=== PATIENT | female | born 1955 | race Caucasian/White ===

== ENCOUNTER → 2017-08-17 | Outpatient (CLI) | payer BC ==
[~2017-08-17] MED LIST: ASP81; ATR10 PO; CIP500 PO; CYCL10TA29 PO; HYDR12.558 PO; HYDROCHLORIZIDE PO; LISI-349 PO; LOM PO; LOR5/325 PO; METO25TA91 PO; ONDA4TAB PO; TRAM-420 PO
== END ==
LOC: LAB 08:39
PROVIDERS: ATTEND Family Medicine
DX: I10 Essential (primary) hypertension (principal); E78.5 Hyperlipidemia, unspecified; R73.01 Impaired fasting glucose
CPT/HCPCS: 36415; 82040; 82247; 82310; 82374; 82435; 82465; 82565; 82947; 83036; 83718; 84075; 84132; 84155; 84295; 84450; 84460; 84478; 84520

== ENCOUNTER → 2017-10-22 | Outpatient (CLI) | payer BC ==
--- NOTE | 2017-10-22 14:27 | RADIOLOGY IMAGING REPORT ---
[place] [facility] [place]IENT NAME: Kusum Khan : 1955 MR: [id number] V: [id number] EXAM DATE: ORDERING PHYSICIAN: JOSE DE JESUS NOGUERA TECHNOLOGIST: Location: [facility] Patient: Kusum Khan : 1955 Visit/Account:[id number] Date of Sevice: 10/22/2017 Abdominal ultrasound Indication: Right upper quadrant pain Comparison: CT abdomen and pelvis August 02, 2011 Technique: Multiple grayscale, color and Doppler sonographic images were obtained for an ultrasound o f the right upper quadrant. Findings: Liver is normal in size, contour, and echotexture and measures 14.3 cm in length. There is normal hep atopedal portal venous flow. Gallbladder wall thickness is 1 mm with calculi within the gallbladder lumen. Positive sonographic M urphy's sign reported by the technologist. No pericholecystic fluid. Common duct measures 5 mm in maximum diameter with no evidence of shadowing stone. Imaged portions of the pancreas are unremarkable. Abdominal aorta and IVC are patent and unremarkable. The right kidney is normal in size, contour, and echotexture measuring 10.9 cm x 4.6 cm x 5.4 cm. IMPRESSION: 1. Cholelithiasis in the background setting of a positive Ken's sign. There is no sonographic josie dence of acute cholecystitis. Report Dictated By: Lars Baig DO at 10/22/2017 2:19 PM Report E-Signed By: Lars Baig DO at 10/22/2017 2:24 PM WSN:[email or web address]
== END ==
LOC: US 12:44
PROVIDERS: ATTEND Family Medicine
DX: K80.20 Calculus of gallbladder without cholecystitis without obstruction (principal); R19.4 Change in bowel habit; R19.7 Diarrhea, unspecified; R19.8 Other specified symptoms and signs involving the digestive system and abdomen
CPT/HCPCS: 36415; 76705; 82040; 82247; 82310; 82374; 82435; 82565; 82947; 84075; 84132; 84155; 84295; 84450; 84460; 84520; 85027

== ENCOUNTER 2017-10-25 01:12 | Day surgery (SDC) | payer BC ==
--- NOTE | 2017-10-24 15:12 | HISTORY AND PHYSICAL ---
DATE OF ADMISSION: October 25, 2017 CHIEF COMPLAINT Right upper quadrant pain. HISTORY OF PRESENT ILLNESS This is a 62-year-old female with a history of hypertension who presents with a one week history of right upper quadrant pain with radiation through to the back. The pain started after eating. It has been pretty steady since. She has had no fever. She has had some nausea. No urinary complaints. She does have some loose stools. Ultrasound revealed cholelithiasis. Chemistry panel showed no elevation of the LFTs. PAST SURGICAL HISTORY * Colonoscopy. * Laser eye operation. * Total hysterectomy. ALLERGIES 1. BIAXIN. 2. PENICILLIN. CURRENT MEDICATIONS * Atorvastatin 10 mg. * Fenofibrate one daily. * Lisinopril/hydrochlorothiazide 20/12.5 daily. REVIEW OF SYSTEMS Significant for the history of hypertension. No cardiac disease, pulmonary disease, liver or kidney disease. No diabetes, no deep venous thrombosis. PHYSICAL EXAMINATION GENERAL: A 62-year-old female in no acute distress. LUNGS: Clear. HEART: Regular rate and rhythm. ABDOMEN: Shows mild tenderness to deep palpation in the right upper quadrant. No palpable masses. IMPRESSION * Cholelithiasis. * Cholecystitis. PLAN Laparoscopic cholecystectomy with intraoperative cholangiogram. We discussed the procedure, complications, recovery time. She seems to understand and wishes to proceed. CHRISTIAN
[~2017-10-25] VITALS: Ht 160 cm; Wt 95.7 kg
[2017-10-25] MEDS: NORMOSOL R SOLN(*) 1000 ML BAG 1,000 ML IV PRN ×2 (07:06→10:50)
[2017-10-25 07:10] VITALS: BP 114/71
--- NOTE | 2017-10-25 07:19 | Post Operative Progress Note ---
Post Operative Progress Note Date: Oct 25, 2017 Surgeon: sigifredo Anesthesia: dr gilbert Pre-Op Diagnosis: cholelithiasis and cholecystitis Post-Op Diagnosis: same Procedure(s): lap noelle with KRISTIE Perry MD Oct 25, 2017 07:19
--- NOTE | 2017-10-25 07:21 | Short(Outpt) Discharge Summary ---
Discharge Summary Reason for Hosp/Final Diag: (1) Cholelithiasis and acute cholecystitis without obstruction Hospital Course & Plan: lap noelle with gram Departure Discharge to: Home Discharge Instructions Home Meds Reported Medications Hydrochlorothiazide (Hydrochlorothiazide) 12.5 Mg Capsule, 12.5 MG PO QDAY 08/10/11 Atorvastatin (Lipitor) 10 Mg Tab, 10 MG PO QHS 08/09/11 Lisinopril (Prinivil) 20 Mg Tablet, 20 MG PO QDAY 08/09/11 Discontinued Scripts Ondansetron (ZOFRAN ODT) 4 Mg Tab.rapdis, 4 MG PO Q6H for PAIN, #20 TAB.IVONNE Prov:DAYSI KEENAN DO 01/11/16 Hydrocodone Bit/Acetaminophen (HYDROCODON-ACETAMINOPHEN 5-325) 1 Each Tablet, 1 EACH PO Q4-6H for PAIN, #20 TAB Prov:DAYSI KEENAN DO 01/11/16 Tramadol Hcl (TRAMADOL HCL) 50 Mg Tablet, 50-100 MG PO Q4-6H for PAIN, #40 TAB Prov:DAYSI KEENAN DO 01/11/16 Cyclobenzaprine Hcl (CYCLOBENZAPRINE HCL) 10 Mg Tablet, 5-10 MG PO TID, #20 TAB Prov:DAYSI KEENAN DO 01/11/16 Diet: Regular Activity: As Tolerated Special Instructions: ice to incisions for 48 hours remove bandages and shower saturday to see me in one week, call [phone] for apt KRISTIE MARQUES MD Oct 25, 2017 07:21
[2017-10-25] MEDS ORDERED: SCOPOLAMINE 1.5 MG PATCH TD ONE (07:25)
[2017-10-25] MEDS ORDERED: ONDANSETRON 4 MG/2 ML VIAL IVP ONE (07:25)
[2017-10-25] MEDS ORDERED: MIDAZOLAM 2 MG/2 ML VIAL IVP PRN (07:40)
[2017-10-25] MEDS ORDERED: LEVOFLOXACIN/D5W*500 MG/100 ML 100 ML IVPB ONE (07:40)
[2017-10-25] MEDS ORDERED: LIDOCAINE/SOD BICARB 8.4% SYR ID ONE (07:40)
[2017-10-25] MEDS ORDERED: FAMOTIDINE 20 MG TAB PO ONE (07:40)
[2017-10-25] MEDS ORDERED: fentaNYL CITR 250 MCG/5 ML AMP ONE (07:46)
[2017-10-25] MEDS ORDERED: DEXAMETHASONE SOD PHOS 10MG/ML ONE (07:47)
[2017-10-25] MEDS ORDERED: LIDOCAINE MPF 1% 5 ML VIAL ONE (07:47)
[2017-10-25] MEDS ORDERED: PROPOFOL EMUL(*) 10MG/ML 20 ML 40 ML ONE (07:47)
[2017-10-25] MEDS ORDERED: ONDANSETRON 4 MG/2 ML VIAL ONE (07:47)
[2017-10-25] MEDS ORDERED: KETAMINE HCL 200 MG/20 ML MDV ONE (07:52)
[2017-10-25] MEDS ORDERED: KETOROLAC 30 MG/ML VIAL ONE (07:52)
[2017-10-25] MEDS ORDERED: HALOPERIDOL LACT 5 MG/ML VIAL IM ONE (07:55)
[2017-10-25] MEDS ORDERED: IOPAMIDOL 61% 75 ML INFUS BTL 75 ML ONE (08:21)
[2017-10-25] MEDS ORDERED: ROPIVACAINE 0.2% 20 ML VIAL ONE (08:22)
[2017-10-25] MEDS ORDERED: ROCURONIUM BROM 10 MG/ML 5 ML ONE (08:30)
[2017-10-25] MEDS ORDERED: SUGAMMADEX SOD 200 MG/2 ML SDV ONE (08:58)
[2017-10-25] MEDS ORDERED: fentaNYL CITR 100 MCG/2 ML AMP ONE ×2 (09:42→10:05)
[2017-10-25] MEDS ORDERED: PROMETHAZINE 25 MG/ML 1 ML AMP ONE (10:12)
[2017-10-25 11:04] VITALS: BP 124/72
[2017-10-25 11:15] VITALS: BP 111/75
[2017-10-25 11:45] VITALS: BP 123/70
[2017-10-25 12:08] VITALS: BP 133/71
[2017-10-25 12:10] VITALS: BP 108/76
--- NOTE | 2017-10-25 15:08 | RADIOLOGY IMAGING REPORT ---
FACILITY: [facility] PATIENT NAME: Kusum Khan : 1955 MR: [id number] V: [id number] EXAM DATE: ORDERING PHYSICIAN: KRISTIE MARQUES TECHNOLOGIST: Location: [facility] Patient: Kusum Khan : 1955 Visit/Account:[id number] Date of Sevice: 10/25/2017 Exam type: CHOLANGIOGRAM OPERATIVE History: PAIN Comparison: None. Findings: 100 intraoperative C-arm spot views over the right upper quadrant were submitted. The total fluorosc opy time was 17.9 seconds. The cumulative continuous possibly dose was 0.47302 mGray per meter squar ed. Contrast is seen in the right left hepatic ducts, common hepatic duct and common bile duct with free flow contrast into duodenum. No intraluminal filling defects are identified within the visualiz ed biliary tree. IMPRESSION: 1. As above Report Dictated By: Delores Ariza MD at 10/25/2017 2:43 PM Report E-Signed By: Delores Ariza MD at 10/25/2017 3:05 PM WSN:[email or web address]
--- NOTE | 2017-10-31 04:32 | OPERATIVE REPORT 1 ---
EVENT DATE: October 25, 2017 SURGEON: Wan Noguera MD ANESTHESIOLOGIST: Vince Cummins MD ANESTHESIA: General. PREOPERATIVE DIAGNOSES Cholelithiasis, cholecystitis. POSTOPERATIVE DIAGNOSES Cholelithiasis, cholecystitis. PROCEDURE Laparoscopic cholecystectomy with intraoperative cholangiogram. DESCRIPTION OF PROCEDURE Patient was placed in the supine position and given general anesthetic. Her abdomen was prepped and draped in sterile fashion. Skin was anesthetized with 0.2% ropivacaine. Small incision was made above the umbilicus. Veress needle was inserted. The abdomen was insufflated with CO2. We placed a 5 mm port under direct vision, then two 5 mm in the right subcostal region, a 10 mm in the epigastrium under direct vision. Gallbladder was grasped and raised cephalad. There were adhesions to the undersurface of the gallbladder. These were taken down with electrocautery. We dissected out the cystic duct, gallbladder junction, placed a clip there, opened the cystic duct, inserted Taut catheter, obtained cholangiograms, which were normal. Clip was removed. Taut catheter was removed. Cystic duct was triply clipped proximally and transected. Cystic artery was dissected out, clipped proximally and distally and transected. We then used electrocautery to dissect the gallbladder from the bed of the liver. This dissection went nicely. We had excellent hemostasis. Gallbladder was placed in Endopouch, removed from the field. We inspected for bleeding, none was noted. Ports were removed under direct vision. No bleeding was noted. Skin was closed with interrupted 4-0 Maxon. Steri-Strips and Airstrip were placed. [facility]ITAL[facility]
== END 2017-10-25 11:04 | disposition home or self-care (01) ==
LOC: OR 01:12
PROVIDERS: ATTEND Surgery
DX: K80.10 Calculus of gallbladder with chronic cholecystitis without obstruction (principal)
CPT/HCPCS: 47563; 74300; 88304; J1100; J1630; J1885; J1956; J2001; J2250; J2405; J2550; J2704; J2795; J3010; J3490; Q9967

== ENCOUNTER → 2017-10-25 | Outpatient (CLI) | payer BC | LOC: NUC 00:08 | PROVIDERS: ATTEND Family Medicine | DX: R10.11 Right upper quadrant pain (principal); R19.7 Diarrhea, unspecified ==

== ENCOUNTER → 2017-10-31 | Outpatient (CLI) | payer BC ==
[2017-10-31 15:00] LABS: PLATELET COUNT, AUTOMATED 402 K/uL (150-450)
--- NOTE | 2017-10-31 17:40 | RADIOLOGY IMAGING REPORT ---
FACILITY: [facility] - [place] PATIENT NAME: Kusum Khan : 1955 MR: [id number] V: [id number] EXAM DATE: ORDERING PHYSICIAN: KRISTIE MARQUES TECHNOLOGIST: Location: [facility] - [place] Patient: Kusum Khan : 1955 Visit/Account:[id number] Date of Sevice: 10/31/2017 Abdominal ultrasound Indication: Abdominal pain 7 days after surgery Comparison: None Findings: Liver is normal in size, contour, and echotexture and measures 13.3 cm in length. There is normal hep atopedal portal venous flow. The spleen is normal in size, contour, and echotexture and measures 9.8 cm in length. Gallbladder is surgically absent. No fluid collections are noted within the fossa.. Common duct measures 2.9 mm in maximum diameter with no evidence of shadowing stone. The head and proximal body of the pancreas is unremarkable. The distal body and tail is obscured by o verlying bowel gas. Abdominal aorta and IVC are patent and unremarkable. The bilateral kidneys are normal in size, contour, and echotexture with the right kidney measuring 1 0.6 cm and the left kidney measuring 10.2 cm. IMPRESSION: 1. No evidence of complication after cholecystectomy Report Dictated By: Trell Altamirano at 10/31/2017 5:36 PM Report E-Signed By: Trell Altamirano at 10/31/2017 5:37 PM WSN:[id number]
== END ==
LOC: US 14:12
PROVIDERS: ATTEND Surgery
DX: Z90.49 Acquired absence of other specified parts of digestive tract (principal)
CPT/HCPCS: 36415; 76700; 82040; 82247; 82310; 82374; 82435; 82565; 82947; 83690; 84075; 84132; 84155; 84295; 84450; 84460; 84520; 85025

== ENCOUNTER → 2017-11-04 | Outpatient (CLI) | payer BC | LOC: LAB 11:46 | PROVIDERS: ATTEND Family Medicine | DX: R10.13 Epigastric pain (principal) | CPT/HCPCS: 36415; 82040; 82150; 82247; 82310; 82374; 82435; 82565; 82947; 83690; 84075; 84132; 84155; 84295; 84450; 84460; 84520; 85027 ==

== ENCOUNTER → 2018-02-06 | Outpatient (CLI) | payer BC | LOC: LAB 08:21 | PROVIDERS: ATTEND Family Medicine | DX: Z00.00 Encounter for general adult medical examination without abnormal findings (principal); E78.5 Hyperlipidemia, unspecified; R73.01 Impaired fasting glucose; R53.83 Other fatigue; R19.7 Diarrhea, unspecified; F41.9 Anxiety disorder, unspecified | CPT/HCPCS: 36415; 82040; 82247; 82310; 82374; 82435; 82465; 82565; 82947; 83718; 84075; 84132; 84155; 84295; 84443; 84450; 84460; 84478; 84520; 85027 ==

== ENCOUNTER → 2018-02-07 | Outpatient (CLI) | payer BC | LOC: LAB 17:02 | PROVIDERS: ATTEND Family Medicine | DX: R73.01 Impaired fasting glucose (principal) | CPT/HCPCS: 36415; 83036 ==

== ENCOUNTER → 2018-03-14 | Outpatient (CLI) | payer BC | LOC: LAB 16:01 | PROVIDERS: ATTEND Family Medicine | DX: R10.13 Epigastric pain (principal) | CPT/HCPCS: 83010 ==

== ENCOUNTER → 2018-03-18 | Outpatient (CLI) | payer BC ==
[~2018-03-18] MED LIST changes: +BARIUM SULFATE 176 GM BTL PO ONE; +BARIUM SULFATE 340 GM POWD ONE
--- NOTE | 2018-03-18 15:45 | RADIOLOGY IMAGING REPORT ---
FACILITY: [facility] PATIENT NAME: Kusum Khan : 1955 MR: [id number] V: [id number] EXAM DATE: ORDERING PHYSICIAN: JOSE DE JESUS NOGUERA TECHNOLOGIST: Location: [facility] - [place] Patient: Kusum Khan : 1955 Visit/Account:[id number] Date of Sevice: 03/18/2018 Exam type: UPPER GI SERIES W/O AIR History: Epigastric pain, cholecystectomy September 2017 Comparison: None. Findings: Double contrast upper GI series was performed with thick and thin barium and air contrast. Small hia misty hernia with a large amount of gastroesophageal reflux observed. No significant narrowing or esop hageal erosion was identified within the esophagus. Images of the stomach appeared unremarkable. Th ere was some spasm noted at the duodenal bulb.. Just beyond the duodenal bulb at the junction of the second portion of the duodenum there appear to be a persistent collection of barium along the inferi or border. Possibility of an ulcer crater in this location cannot be excluded. the fluoroscopy dose area product was 1337.10 micro-Estrada per meter squared IMPRESSION: 1. Small hiatal hernia with a large amount of gastric esophageal reflux although no significant esop hageal narrowing or mucosal erosion Spasticity seen at the duodenal bulb which can be seen with peptic ulcer disease Just beyond the duodenal bulb at the junction of the second portion the duodenum there appear to be a persistent collection of barium along the inferior border. This could possibly represent an ulcer c rater. Report Dictated By: Delores Ariza MD at 03/18/2018 3:32 PM Report E-Signed By: Delores Ariza MD at 03/18/2018 3:41 PM WSN:[email or web address]
== END ==
LOC: RAD 00:11
PROVIDERS: ATTEND Family Medicine
DX: K26.9 Duodenal ulcer, unspecified as acute or chronic, without hemorrhage or perforation (principal); K21.9 Gastro-esophageal reflux disease without esophagitis; K44.9 Diaphragmatic hernia without obstruction or gangrene; K59.8 Other specified functional intestinal disorders
CPT/HCPCS: 74240

== ENCOUNTER 2018-07-10 17:47 | Emergency (ER) | payer BC ==
[~2018-07-10 17:47] MED LIST changes: -BARIUM SULFATE 176 GM BTL PO ONE; -BARIUM SULFATE 340 GM POWD ONE
--- NOTE | 2018-07-10 17:59 | ER Report ---
History and Physical Time Seen By MD: 17:59 HPI/ROS CHIEF COMPLAINT: Diarrhea HISTORY OF PRESENT ILLNESS: 62-year-old female patient presents to emergency room with complaint of diarrhea. Patient states that she's been having diarrhea for the last 3 days. She states that Saturday night diarrhea was also closed. She states it seemed to be improved yesterday and then today she's had 2 bouts. Patient did go see her primary care provider who recommended she come here for evaluation. She states she's not had any fevers, chills. Patient does work in healthcare facility, [employer]. She states that she was vaccinated for the flu. Patient states that today she just felt horrible. REVIEW OF SYSTEMS: Respiratory: No cough, no dyspnea. Cardiovascular: No chest pain, no palpitations. Gastrointestinal: As noted above Musculoskeletal: No back pain. Allergies: Coded Allergies: Penicillins (Verified Allergy, Severe, ANAPHYLAXIS, 07/10/18) clarithromycin (Verified Allergy, Severe, ANAPHYLAXIS, 07/10/18) Home Meds Active Scripts Ondansetron Hcl (ZOFRAN) 4 Mg Tablet, 4 MG PO Q6H PRN for NAUSEA/VOMITING, #20 TAB Prov:MECHE MAHANSSE SECURITY MANAGER 07/10/18 Reported Medications Pantoprazole Sodium (PANTOPRAZOLE SODIUM) 40 Mg Tablet.dr, 40 MG PO QDAY 07/10/18 Fenofibric Acid (Choline) (FENOFIBRIC ACID) 135 Mg Capsule.dr, 135 MG PO QDAY 07/10/18 Ranitidine Hcl (RANITIDINE HCL) 300 Mg Tablet, 300 MG PO QDAY 07/10/18 Hydrochlorothiazide (Hydrochlorothiazide) 12.5 Mg Capsule, 12.5 MG PO QDAY 08/10/11 Atorvastatin (Lipitor) 10 Mg Tab, 10 MG PO QHS 08/09/11 Lisinopril (Prinivil) 20 Mg Tablet, 20 MG PO QDAY 08/09/11 Past Medical/Surgical History Patient has a past medical history of hypertension, hyperlipidemia, cholecystitis. Patient has a surgical history of hysterectomy, cholecystectomy, tonsillectomy, orthopedic surgery, bilateral retinal reattachment, colonoscopy, endoscopy. Reviewed Nurses Notes: Yes Hx Smoking: No Smoking Status: Never Smoker Hx Substance Use Disorder: No Hx Alcohol Use: No Constitutional Vital Sign - Last 24 Hours 07/10/18 07/10/18 07/10/18 07/10/18 17:47 17:59 18:00 18:17 Temp 98.5 Pulse 77 74 71 Resp 15 B/P (MAP) 151/82 (105) 151/82 Pulse Ox 92 94 90 O2 Delivery Room Air Room Air Room Air 07/10/18 07/10/18 07/10/18 07/10/18 18:43 18:47 18:47 18:48 Pulse 78 B/P (MAP) 126/54 (78) Pulse Ox 82 93 O2 Delivery Room Air Nasal Cannula O2 Flow Rate 2.0 2 07/10/18 07/10/18 07/10/18 07/10/18 18:52 19:00 19:07 19:22 Pulse ??? 76 71 B/P (MAP) ???/??? (1665) Pulse Ox 94 96 07/10/18 07/10/18 07/10/18 07/10/18 19:30 19:37 19:52 20:07 Pulse 71 69 72 B/P (MAP) 111/75 (87) Pulse Ox 94 96 92 07/10/18 20:22 Pulse 64 Pulse Ox 97 Physical Exam General Appearance: The patient is alert, has no immediate need for airway protection and no current signs of toxicity. Respiratory: Chest is non tender, lungs are clear to auscultation. Cardiac: regular rate and rhythm Gastrointestinal: Abdomen is soft and non tender, no masses, bowel sounds are hyperactive. Musculoskeletal: Neck: Neck is supple and non tender. Extremities have full range of motion and are non tender. Skin: No rashes or lesions. DIFFERENTIAL DIAGNOSIS: After history and physical exam differential diagnosis was considered for gastritis, C. difficile, viral enteritis. Medical Decision Making Data Points Result Diagram: 07/10/18180407/10/181804 Laboratory Hematology Test 07/10/18 18:05 07/10/18 18:16 07/10/18 18:51 Red Blood Count 5.43 M/uL (4.17-5.56) Mean Corpuscular Volume 84.9 fL (80.0-96.0) Mean Corpuscular Hemoglobin 28.6 pg (26.0-33.0) Mean Corpuscular Hemoglobin Concent 33.7 g/dL (32.0-36.0) Red Cell Distribution Width 14.1 % (11.5-14.5) Mean Platelet Volume 7.2 fL (7.2-11.1) Neutrophils (%) (Auto) 69.2 % (39.4-72.5) Lymphocytes (%) (Auto) 21.3 % (17.6-49.6) Monocytes (%) (Auto) 7.6 % (4.1-12.4) Eosinophils (%) (Auto) 1.7 % (0.4-6.7) Basophils (%) (Auto) 0.2 % (0.3-1.4) Nucleated RBC Relative Count (auto) 0.0 /100WBC Neutrophils # (Auto) 6.8 K/uL (2.0-7.4) Lymphocytes # (Auto) 2.1 K/uL (1.3-3.6) Monocytes # (Auto) 0.7 K/uL (0.3-1.0) Eosinophils # (Auto) 0.2 K/uL (0.0-0.5) Basophils # (Auto) 0.0 K/uL (0.0-0.1) Nucleated RBC Absolute Count (auto) 0.00 K/uL Sodium Level 138 mmol/L (137-145) Potassium Level 3.3 mmol/L (3.5-5.0) Chloride Level 103 mmol/L (98-107) Carbon Dioxide Level 27 mmol/L (22-31) Blood Urea Nitrogen 23 mg/dl (7-18) Creatinine 1.10 mg/dl (0.52-1.04) Glomerular Filtration Rate Calc 50.7 Random Glucose 87 mg/dl (75-110) Calcium Level 9.2 mg/dl (8.4-10.2) Total Bilirubin 0.5 mg/dl (0.2-1.3) Aspartate Amino Transf (AST/SGOT) 35 U/L (0-35) Alanine Aminotransferase (ALT/SGPT) 36 U/L (0-56) Alkaline Phosphatase 61 U/L (0-126) Total Protein 7.1 g/dl (6.3-8.2) Albumin 4.5 g/dl (3.5-5.0) Amylase Level 70 U/L (0-110) Lipase 182 U/L (23-300) Helicobacter pylori IgG Antibody Negative (NEGATIVE) Influenza Virus Type A (PCR) Negative (NEGATIVE) Influenza Virus Type B (PCR) Negative (NEGATIVE) Urine Color Yellow Urine Clarity Clear Urine pH 5.0 pH (4.8-9.5) Urine Specific [place] 1.013 Urine Protein Negative mg/dL (NEGATIVE) Urine Glucose (UA) Negative mg/dL (NEGATIVE) Urine Ketones Negative mg/dL (NEGATIVE) Urine Blood Small (NEGATIVE) Urine Nitrite Negative (NEGATIVE) Urine Bilirubin Negative (NEGATIVE) Urine Urobilinogen Negative mg/dL (0.2-1.9) Urine Leukocyte Esterase Trace (NEGATIVE) Urine RBC None /HPF (0-2/HPF) Urine WBC 5 /HPF (0-5/HPF) Urine Squamous Epithelial Cells Many /LPF (</=FEW) Urine Bacteria Few /HPF (NONE-FEW) Urine Mucus None /HPF (NONE-FEW) Chemistry Test 07/10/18 18:05 07/10/18 18:16 07/10/18 18:51 White Blood Count 9.8 k/uL (4.5-11.0) Red Blood Count 5.43 M/uL (4.17-5.56) Hemoglobin 15.5 g/dL (12.0-16.0) Hematocrit 46.1 % (34.0-47.0) Mean Corpuscular Volume 84.9 fL (80.0-96.0) Mean Corpuscular Hemoglobin 28.6 pg (26.0-33.0) Mean Corpuscular Hemoglobin Concent 33.7 g/dL (32.0-36.0) Red Cell Distribution Width 14.1 % (11.5-14.5) Platelet Count 340 K/uL (150-450) Mean Platelet Volume 7.2 fL (7.2-11.1) Neutrophils (%) (Auto) 69.2 % (39.4-72.5) Lymphocytes (%) (Auto) 21.3 % (17.6-49.6) Monocytes (%) (Auto) 7.6 % (4.1-12.4) Eosinophils (%) (Auto) 1.7 % (0.4-6.7) Basophils (%) (Auto) 0.2 % (0.3-1.4) Nucleated RBC Relative Count (auto) 0.0 /100WBC Neutrophils # (Auto) 6.8 K/uL (2.0-7.4) Lymphocytes # (Auto) 2.1 K/uL (1.3-3.6) Monocytes # (Auto) 0.7 K/uL (0.3-1.0) Eosinophils # (Auto) 0.2 K/uL (0.0-0.5) Basophils # (Auto) 0.0 K/uL (0.0-0.1) Nucleated RBC Absolute Count (auto) 0.00 K/uL Glomerular Filtration Rate Calc 50.7 Calcium Level 9.2 mg/dl (8.4-10.2) Total Bilirubin 0.5 mg/dl (0.2-1.3) Aspartate Amino Transf (AST/SGOT) 35 U/L (0-35) Alanine Aminotransferase (ALT/SGPT) 36 U/L (0-56) Alkaline Phosphatase 61 U/L (0-126) Total Protein 7.1 g/dl (6.3-8.2) Albumin 4.5 g/dl (3.5-5.0) Amylase Level 70 U/L (0-110) Lipase 182 U/L (23-300) Helicobacter pylori IgG Antibody Negative (NEGATIVE) Influenza Virus Type A (PCR) Negative (NEGATIVE) Influenza Virus Type B (PCR) Negative (NEGATIVE) Urine Color Yellow Urine Clarity Clear Urine pH 5.0 pH (4.8-9.5) Urine Specific [place] 1.013 Urine Protein Negative mg/dL (NEGATIVE) Urine Glucose (UA) Negative mg/dL (NEGATIVE) Urine Ketones Negative mg/dL (NEGATIVE) Urine Blood Small (NEGATIVE) Urine Nitrite Negative (NEGATIVE) Urine Bilirubin Negative (NEGATIVE) Urine Urobilinogen Negative mg/dL (0.2-1.9) Urine Leukocyte Esterase Trace (NEGATIVE) Urine RBC None /HPF (0-2/HPF) Urine WBC 5 /HPF (0-5/HPF) Urine Squamous Epithelial Cells Many /LPF (</=FEW) Urine Bacteria Few /HPF (NONE-FEW) Urine Mucus None /HPF (NONE-FEW) Urinalysis Test 07/10/18 18:51 Urine Color Yellow Urine Clarity Clear Urine pH 5.0 pH (4.8-9.5) Urine Specific [place] 1.013 Urine Protein Negative mg/dL (NEGATIVE) Urine Glucose (UA) Negative mg/dL (NEGATIVE) Urine Ketones Negative mg/dL (NEGATIVE) Urine Blood Small (NEGATIVE) Urine Nitrite Negative (NEGATIVE) Urine Bilirubin Negative (NEGATIVE) Urine Urobilinogen Negative mg/dL (0.2-1.9) Urine Leukocyte Esterase Trace (NEGATIVE) Urine RBC None /HPF (0-2/HPF) Urine WBC 5 /HPF (0-5/HPF) Urine Squamous Epithelial Cells Many /LPF (</=FEW) Urine Bacteria Few /HPF (NONE-FEW) Urine Mucus None /HPF (NONE-FEW) EKG/Imaging Imaging CT abdomen and pelvis with IV contrast Indication: Left abdominal pain. Diarrhea. Comparison: None available. . Technique: Axial CT images were obtained through the abdomen and pelvis during injection of nonionic iodinated intravenous contrast. Reformatted coronal and sagittal images were also obtained. One of the following dose optimization techniques was utilized in the performance of this exam: Automated exposure control; adjustment of the mA and/or kV according to the patient's size; or use of an iterative reconstruction technique. Specific details can be referenced in the facility's radiology CT exam operational policy. Contrast: 75 ml of Isovue-370 IV contrast. Findings: Lower lung dale: Limited views lower lung field are unremarkable. Liver: Subcentimeter hypodensity in left lobe liver is too small characterize and statistically tiny cyst. No other focal abnormality. Biliary: Status post cholecystectomy. Biliary system is unremarkable. Pancreas: No focal abnormality. Spleen: Normal appearance. Adrenal glands: Unremarkable. Kidneys / retroperitoneum: No evidence of nephrolithiasis or hydronephrosis. No focal abnormality. Bowel / peritoneum / mesenteries: Diverticula seen along the sigmoid colon wit hout pericolonic inflammation. Colon shows no other focal abnormality. The appendix is not definitely visualized. No secondary signs of appendicitis. Small bowel shows no focal normality or obstruction. The stomach is unremarkable. No free air, free fluid, fluid collections or areas of inflammation. Small umbilical hernia containing fat. Lymph node assessment: No pathologic adenopathy identified. Pelvic structures: Uterus is not visualized may been surgically removed. The remaining pelvic structures visualized within normal limits. Vessels: No significant atherosclerotic calcifications seen throughout a nonaneurysmal abdominal aorta and branches. Musculoskeletal / Body wall: No acute or aggressive osseous abnormality. Mild degenerative changes spine. IMPRESSION: 1. No acute intra-abdominal abnormality 2. Sigmoid diverticulosis without radiographic indication diverticulitis. 3. Other chronic findings as above. Report Dictated By: Didier Ferris at 07/10/2018 7:14 PM Report E-Signed By: Didier Ferris at 07/10/2018 7:23 PM ED Course/Re-evaluation ED Course Patient was admitted exam, history and physical obtained. Differential diagnoses were considered. A CBC, CMP were obtained. An IV was started. Patient is a liter normal saline. CT scan abdomen and pelvis were done. The lab results were unremarkable. The CT scan was also negative. I do an influenza screen as well. On reevaluation patient states she's feeling significantly better. She states that she is ready to home. We did give her some Zofran for nausea which completely resolve. We gave her some water she was able to tolerate that without difficulties. We will go ahead and discharge her home at this time. Patient was given a prescription for stool studies which were not able to obtain here in the emergency room she did not have any diarrhea. She will return those and those results should be sent to Dr. Frederick. I discussed with the patient and her and they verbalized understanding with plan. Decision to Disposition Date: Jul 10, 2018 Decision to Disposition Time: 20:21 Depart Departure Latest Vital Signs Vital Signs Date Time Temp Pulse Resp B/P (MAP) Pulse Ox O2 Delivery O2 Flow Rate FiO2 07/10/18 20:22 64 97 07/10/18 19:30 111/75 (87) 07/10/18 18:48 Nasal Cannula 2 07/10/18 18:00 98.5 15 Impression: Primary Impression: Diarrhea Additional Impression: Dehydration Condition: Improved Disposition: HOME OR SELF-CARE Referrals: JOSE DE JESUS FREDERICK DO (PCP) New Scripts Ondansetron Hcl (ZOFRAN) 4 Mg Tablet 4 MG PO Q6H PRN for NAUSEA/VOMITING, #20 TAB Prov: NICK MAHAN 07/10/18 Patient Instructions: Dehydration (ED) Additional Instructions: Increase fluid intake. Get plenty of rest. Follow up with Dr. Frederick next week. Bring the stool sample back to the hospital lab. Return to the ER if condition worsens. Problem Qualifiers Primary Impression: Diarrhea Diarrhea type: unspecified type Qualified Codes: R19.7 - Diarrhea, unspecified NICK MAHAN Jul 10, 2018 17:59
[2018-07-10] MEDS ORDERED: NS(*) 0.9% 1000 ML BAG 1,000 ML IV ONE (18:08)
[2018-07-10] MEDS ORDERED: ONDANSETRON 4 MG/2 ML VIAL IVP ONE (18:10)
[2018-07-10] MEDS ORDERED: FENO135C PO (18:11)
[2018-07-10] MEDS ORDERED: PANT40TA65 PO (18:11)
[2018-07-10] MEDS ORDERED: RANI-320 PO (18:11)
[2018-07-10 18:18] LABS: PLATELET COUNT, AUTOMATED 340 K/uL (150-450)
[2018-07-10] MEDS ORDERED: IOPAMIDOL 61% 75 ML INFUS BTL 75 ML ONE (18:24)
--- NOTE | 2018-07-10 19:27 | RADIOLOGY IMAGING REPORT ---
FACILITY: [facility] [place] PATIENT NAME: Kusum Khan : 1955 MR: [id number] V: [id number] EXAM DATE: ORDERING PHYSICIAN: NICK MAHAN TECHNOLOGIST: Location: [facility] Patient: Kusum Khan : 1955 Visit/Account:[id number] Date of Sevice: 07/10/2018 CT abdomen and pelvis with IV contrast Indication: Left abdominal pain. Diarrhea. Comparison: None available. . Technique: Axial CT images were obtained through the abdomen and pelvis during injection of nonioni c iodinated intravenous contrast. Reformatted coronal and sagittal images were also obtained. One of the following dose optimization techniques was utilized in the performance of this exam: Autom ated exposure control; adjustment of the mA and/or kV according to the patient's size; or use of an i terative reconstruction technique. Specific details can be referenced in the facility's radiology C T exam operational policy. Contrast: 75 ml of Isovue-370 IV contrast. Findings: Lower lung dale: Limited views lower lung field are unremarkable. Liver: Subcentimeter hypodensity in left lobe liver is too small characterize and statistically tiny cyst. No other focal abnormality. Biliary: Status post cholecystectomy. Biliary system is unremarkable. Pancreas: No focal abnormality. Spleen: Normal appearance. Adrenal glands: Unremarkable. Kidneys / retroperitoneum: No evidence of nephrolithiasis or hydronephrosis. No focal abnormality. Bowel / peritoneum / mesenteries: Diverticula seen along the sigmoid colon without pericolonic inflam mation. Colon shows no other focal abnormality. The appendix is not definitely visualized. No seconda ry signs of appendicitis. Small bowel shows no focal normality or obstruction. The stomach is unremar kable. No free air, free fluid, fluid collections or areas of inflammation. Small umbilical hernia containin g fat. Lymph node assessment: No pathologic adenopathy identified. Pelvic structures: Uterus is not visualized may been surgically removed. The remaining pelvic stru ctures visualized within normal limits. Vessels: No significant atherosclerotic calcifications seen throughout a nonaneurysmal abdominal aort a and branches. Musculoskeletal / Body wall: No acute or aggressive osseous abnormality. Mild degenerative changes sp ine. IMPRESSION: 1. No acute intra-abdominal abnormality 2. Sigmoid diverticulosis without radiographic indication diverticulitis. 3. Other chronic findings as above. Report Dictated By: Didier Ferris at 07/10/2018 7:14 PM Report E-Signed By: Didier Ferris at 07/10/2018 7:23 PM WSN:[id number]
[2018-07-10 19:30] VITALS: BP 111/75
[2018-07-10] MEDS ORDERED: ONDA4TAB97 PO (20:19)
== END 2018-07-10 20:26 | disposition home or self-care (01) ==
LOC: ER 18:17
DX: R19.7 Diarrhea, unspecified (principal); E86.0 Dehydration
CPT/HCPCS: 81001; 82150; 83630; 83690; 85025; 86677; 87493; 87502; 96361; 96374; 99284; J2405; J7030; Q9967; 74177; 82040; 82247; 82310; 82374; 82435; 82565; 82947; 84075; 84132; 84155; 84295; 84450; 84460; 84520

== ENCOUNTER → 2018-11-21 | Outpatient (CLI) | payer BC ==
[~2018-11-21] MED LIST changes: +FENO135C PO; +ONDA4TAB97 PO; +PANT40TA65 PO; +RANI-320 PO
== END ==
LOC: LAB 09:36
PROVIDERS: ATTEND Family Medicine
DX: E78.5 Hyperlipidemia, unspecified (principal); R73.01 Impaired fasting glucose; I10 Essential (primary) hypertension
CPT/HCPCS: 36415; 82040; 82247; 82310; 82374; 82435; 82465; 82565; 82947; 83036; 83718; 84075; 84132; 84155; 84295; 84450; 84460; 84478; 84520